=== PATIENT | female | born 1995 | race Asian ===

== ENCOUNTER 2017-01-14 13:39 | Emergency (ER) | payer BC, OTHER ==
[~2017-01-14] VITALS: Ht 157.5 cm; Wt 53.6 kg
[~2017-01-14 13:39] MED LIST: CHROMAGEN,1 CAPSULE PO; IBUPROFEN800 MG PO; PRENATAL TABLE1 EAC3 PO
[2017-01-14 15:12] LABS: HEMATOCRIT 32.1 % (36.0-46.0); MCH 25.8 PG (29.0-34.0); MCHC 32.7 G/DL (30.0-36.0); MCV 78.9 FL (83-99); MEAN PLAT.VOLUME 9.9 uM^3 (9.5-12.4); PLATELET COUNT 251 K/uL (156-360); RBC DIS.WIDTH-CV 15.8 % (11.8-14.6); RBC DIS.WIDTH-SD 45.1 % (39-53); RED BLOOD COUNT 4.07 M/uL (3.80-5.20); WHITE BLOOD COUNT 6.3 K/uL (4.1-10.2)
[2017-01-14 15:20] LABS: CHLORIDE 108 mEq/L (99-109); POTASSIUM 3.8 mEq/L (3.7-5.4); SODIUM 137 mEq/L (136-147)
[2017-01-14 15:22] LABS: GLUCOSE 76 mg/dL (70-99)
[2017-01-14 15:23] LABS: ANION GAP 6 MEQ/L (2-14)
[2017-01-14 15:24] LABS: TOTAL BILIRUBIN 0.6 mg/dL (0.0-1.0)
[2017-01-14 15:25] LABS: ALKALINE PHOSPHATASE 64 IU/L (3-129)
[2017-01-14 15:26] LABS: GFR ESTIMATE (CALCULATED) > 59 mL/min/
[2017-01-14 15:27] LABS: UREA NITROGEN (BUN) 8 mg/dL (9-23)
[2017-01-14 15:51] LABS: QUANTITATIVE HCG 36955.5 MIU/ML
[2017-01-14 17:12] LABS: ADD MIUA? YES; BILIRUBIN NEGATIVE; BLOOD NEGATIVE; COLOR YELLOW ((YELLOW)); GLUCOSE (STRIP) NEGATIVE; KETONES NEGATIVE; LEUKOCYTES NEGATIVE; NITRITE NEGATIVE; PROTEIN (STRIP) NEGATIVE; SPECIFIC GRAVITY 1.025 (1.000-1.030); UROBILINOGEN 0.2 MG/DL (0.2-1.0)
[2017-01-14 17:17] LABS: BACTERIA RARE /HPF; EPITHELIAL CELLS RARE /HPF; MUCUS TRACE /LPF; RED BLOOD CELLS 0-5 /HPF (0-5); UCUL ADDED? NO; WHITE BLOOD CELLS 0-5 /HPF (0-5)
[2017-01-14 17:36] VITALS: BP 102/43
== END 2017-01-14 17:37 | disposition left against medical advice (07) ==
LOC: EME 13:39
PROVIDERS: Emergency Medicine
DX: O26.892 Other specified pregnancy related conditions, second trimester (principal); R10.32 Left lower quadrant pain; Z3A.15 15 weeks gestation of pregnancy; Z53.20 Procedure and treatment not carried out because of patient's decision for unspecified reasons
CPT/HCPCS: 80053; 81003; 84702; 85027; 99281; 99283

== ENCOUNTER 2017-06-22 00:15 | Outpatient (CLI) | payer OTHER ==
[2017-06-22 00:38] VITALS: BP 110/74
[2017-06-22 02:10] LABS: AMPHETAMINE NEGATIVE (500 ng/mL); BARBITURATES NEGATIVE (200 ng/mL); BENZODIAZEPINES NEGATIVE (150 ng/mL); BUPRENORPHINE NEGATIVE (10 ng/mL); COCAINE NEGATIVE (150 ng/mL); METHADONE NEGATIVE (200 ng/mL); METHAMPHETAMINE NEGATIVE (500 ng/mL); OPIATES (MORPHINE) NEGATIVE (100 ng/mL); OXYCODONE NEGATIVE (100 ng/mL); PHENCYCLIDINE NEGATIVE (25 ng/mL); PROPOXYPHENE NEGATIVE (300 ng/mL); THC CANNABINOIDS NEGATIVE (50 ng/mL); TRICYCLIC ANTIDEPRESSANTS NEGATIVE (300 ng/mL)
[2017-06-22 02:19] LABS: BASOPHIL (%) 0.5 % (0-1); BASOPHIL COUNT 0.1 K/uL (0-0.1); EOSINOPHIL (%) 1.8 % (0-5); EOSINOPHIL COUNT 0.2 K/uL (0-0.3); HEMATOCRIT 28.4 % (36.0-46.0); HEMOGLOBIN 8.8 G/DL (11.9-15.5); IMMATURE GRANULOCYTE (%) 1.9 % (0.0-0.7); LYMPHOCYTE (%) 16.7 % (15-42); LYMPHOCYTE COUNT 1.9 K/uL (1.0-2.8); MCH 23.1 PG (29.0-34.0); MCV 74.5 FL (83-99); MONOCYTE (%) 7.8 % (3-12); MONOCYTE COUNT 0.9 K/uL (0-0.8); NEUTROPHIL (%) 71.3 % (45-76); PLATELET COUNT 274 K/uL (156-360); RBC DIS.WIDTH-CV 15.1 % (11.8-14.6); RBC DIS.WIDTH-SD 40.8 % (39-53); RED BLOOD COUNT 3.81 M/uL (3.80-5.20); WHITE BLOOD COUNT 11.3 K/uL (4.1-10.2)
[2017-06-22 02:23] LABS: ALBUMIN 3.4 g/dL (3.2-4.8); CHLORIDE 106 mEq/L (99-109); POTASSIUM 3.8 mEq/L (3.7-5.4); SODIUM 136 mEq/L (136-147)
[2017-06-22 02:25] LABS: GLUCOSE 93 mg/dL (70-99)
[2017-06-22 02:26] LABS: TOTAL PROTEIN 6.5 g/dL (6.4-8.3)
[2017-06-22 02:27] LABS: TOTAL BILIRUBIN 0.4 mg/dL (0.0-1.0)
[2017-06-22 02:29] LABS: ALKALINE PHOSPHATASE 280 IU/L (3-129); CREATININE 0.6 mg/dL (0.6-1.3); GFR ESTIMATE (CALCULATED) > 59 mL/min/
[2017-06-22 02:30] LABS: UREA NITROGEN (BUN) 9 mg/dL (9-23)
[2017-06-22 02:31] LABS: APPEARANCE SL.HAZY ((CLEAR)); BILIRUBIN NEGATIVE; BLOOD NEGATIVE; COLOR YELLOW ((YELLOW)); GLUCOSE (STRIP) NEGATIVE; KETONES 5; LEUKOCYTES NEGATIVE; NITRITE NEGATIVE; PROTEIN (STRIP) NEGATIVE; SPECIFIC GRAVITY 1.015 (1.000-1.030); UROBILINOGEN 0.2 MG/DL (0.2-1.0)
[2017-06-22 02:31] LABS: AST (GOT) 12 IU/L (2-34)
[2017-06-22 02:32] LABS: ALT (GPT) 6 IU/L (3-49)
[2017-06-22 02:47] LABS: BACTERIA RARE /HPF; EPITHELIAL CELLS 2+ /HPF; MUCUS TRACE /LPF; RED BLOOD CELLS 0-5 /HPF (0-5); WHITE BLOOD CELLS 0-5 /HPF (0-5)
[2017-06-22 02:52] LABS: ANTI-HIV (AIDS STAT TEST) NONREACTIVE
[2017-06-22 02:55] LABS: GROUP B STREP NEGATIVE (NEGATIVE)
[2017-06-22 10:20] LABS: HEMOGLOBIN A1c (GLYCOHEMOGLOB) 5.4 % (Below 5.7)
[2017-06-22 11:02] LABS: TREPONEMA ANTIBODY NEGATIVE (NEGATIVE)
[2017-06-22 11:46] LABS: HEPATITIS B SURFACE ANTIGEN Nonreactive
[2017-06-22 11:47] LABS: HIV-1/2 AB/AG COMBO Nonreactive
[2017-06-25 00:17] LABS: HGBE Erythrocyte Cnt 3.86 Mill/uL (3.80-5.10); HGBE Hematocrit 28.6 % (35.0-45.0); HGBE Hemoglobin 8.8 g/dL (11.7-15.5); HGBE MCH 22.8 pg (27.0-33.0); HGBE MCV 74.1 FL (80.0-100.0); HGBE RDW 16.6 % (11.0-15.0)
== END 2017-06-22 02:49 | disposition home or self-care (01) ==
LOC: LDRP-OP 00:15 → 2WEST 00:16
PROVIDERS: Advanced Practice Midwife; Obstetrics & Gynecology Obstetrics
DX: O47.1 False labor at or after 37 completed weeks of gestation (principal); Z3A.38 38 weeks gestation of pregnancy
CPT/HCPCS: 59025; 80053; 81003; 83021 90; 83036; 85014 90; 85018 90; 85025; 85041 90; 86762; 86780; 86850; 86900; 86901; 87086; 87340; 87389; 87653; G0378